=== PATIENT | female | born 1950 | race Caucasian/White ===

== ENCOUNTER 2018-06-25 10:12 | Day surgery (SDC) | payer OTHER ==
[~2018-06-25] VITALS: Ht 160 cm; Wt 70.4 kg
[2018-06-25] MEDS ORDERED: METOPROLOL (11:19)
[2018-06-25] MEDS ORDERED: LOSARTAN (11:19)
[2018-06-25] MEDS ORDERED: AMLODIPINE (11:19)
[2018-06-25] MEDS ORDERED: ALENDRONATE SODIUM (11:19)
[2018-06-25] MEDS ORDERED: INSULIN (11:19)
[2018-06-25] MEDS ORDERED: ASPIRIN (11:19)
[2018-06-25 11:20] VITALS: Ht 160 cm; Wt 70.4 kg
[2018-06-25 11:32] VITALS: BP 147/65; PULSE 81
[2018-06-25] MEDS ORDERED: FENTAnyl 50 MCG/ML VIAL ONE (12:05)
[2018-06-25] MEDS ORDERED: MIDAZOLAM 1 MG/ML 2 ML INJ ONE ×2 (12:05)
[2018-06-25 12:28] VITALS: BP 128/63; RESP 15
== END 2018-06-25 15:44 | disposition home or self-care (01) ==
LOC: GIL 10:12
PROVIDERS: ATTEND Internal Medicine Gastroenterology
DX: Z12.11 Encounter for screening for malignant neoplasm of colon (principal); K64.8 Other hemorrhoids
CPT/HCPCS: 45378; J2250; J3010